=== PATIENT | female | born 1950 ===

== ENCOUNTER 2020-04-11 07:29 | Inpatient (IN) | payer MEDICARE, OTHER ==
[2020-04-11] MEDS ORDERED: Dextrose 50% Abboject 50 ML SYRINGE ONE (08:13)
--- NOTE | 2020-04-11 08:42 | RAD ---
Portable frontal chest radiograph: 04/11/2020 COMPARISON: 04/11/2019 HISTORY: Cough with shortness of breath FINDINGS: The heart and mediastinal contours are stable. There is new hazy increased density in the r ight lung base obscured in the right hemidiaphragm with blunting of the right costophrenic angle. Left lung appears clear. IMPRESSION: Interval development of hazy increased density in the right lung base. Findings suggest r ight basilar infectious pneumonitis or aspiration. Asymmetric edema is a possibility. Follow-up imaging is advised following treatment.
[2020-04-11 08:56] LABS: #Eosinphils 0.7 thou/uL (0.0-0.7); #Monocytes 0.4 thou/uL (0.11-0.59); %Basophils 0.7 % (0.0-1.0); %Eosinophils 16.6 % (0.0-10.0); %Lymphocytes 23.9 % (21.0-51.0); %Monocytes 8.6 % (0.0-10.0); %Neutrophils 50.2 % (42.0-75.0); Mean Corpuscular HGB CONC 32.7 g/dL (32.0-36.0); Mean Corpuscular Hemoglobin 28.4 pg (27.0-31.0); Mean Corpuscular Volume 86.8 fL (78.0-98.0); Mean Platelet Volume 6.6 fL (7.4-10.4); Platelet Count 225 thou/uL (130-400); RBC Distribution Width 15.8 % (11.5-14.5); Red Blood Cell (RBC) Count 3.16 mill/uL (4.20-5.40)
--- NOTE | 2020-04-11 09:04 | CT ---
Exam: Head CT without contrast HISTORY: Hypoglycemia. COMPARISON: 02/18/2019 FINDINGS: Hemorrhage: No intraparenchymal hemorrhage or extra-axial hematoma. Brain parenchyma: Cortical gonzalez-white matter differentiation is preserved. No mass effect or midline shift. Basilar cisterns are patent.Confluent white matter hypodensities likely due to chronic small vessel ischemic change. Chronic hypodensity in the left thalamus. Ventricular system: Ventricles and sulci are patent and symmetric. Calvarium: Intact. Sinuses and mastoid air cells: Adequate aeration. Old right lamina propecia fracture IMPRESSION: No acute intracranial process.
[2020-04-11] MEDS ORDERED: Azithromycin 500 MG VIAL ONE (09:27)
[2020-04-11] MEDS ORDERED: cefTRIAXone\\ROCEPHIN 1 GM VIAL ONE (09:27)
[2020-04-11 09:31] LABS: ALT (SGPT) Less than 7 U/L (8-55); AST (SGOT) 12 U/L (5-34); Albumin 3.1 g/dL (3.4-4.8); Alkaline Phosphatase 41 U/L (40-110); Anion Gap 9 mmol/L (10-20); BUN (Urea Nitrogen) 13 mg/dL (9.8-20.1); Bilirubin, Total 0.5 mg/dL (0.2-1.2); Calc. Creatinine Clearance 0 mL/min (70-130); Calcium 8.4 mg/dL (7.8-10.44); Carbon Dioxide 30 mmol/L (23-31); Chloride 99 mmol/L (98-107); Estimated GFR-MDRD 25; Globulin 2.4 g/dL (2.4-3.5); Glucose 146 mg/dL (83-110); Potassium 3.4 mmol/L (3.5-5.1); Protein, Total 5.5 g/dL (6.0-8.3); Sodium 135 mmol/L (136-145)
--- NOTE | 2020-04-11 09:49 | PDOC.HHP ---
Hospitalist HPI - History of Present Illness Hypoglycemia, AMS History of Present Illness: This is a 70-year-old female patient with a history of acute respiratory failure with hypoxemia, coronary disease, diabetes mellitus type 2, TYLER, CHF, CKD stage IV, hyperlipidemia, dysphagia, iron deficiency anemia and dementia who [facility] she was found to be hypoglycem ic with glucose of 34, with altered mental status and requiring 4 L oxygen. EMS noted a blood pressure of 152/75, pulse 52 oxygen saturation 100. On arrival vitals were 166/71 blood pressure, pulse 48, respiratory 12 saturation 94 on 4 L. Temperature rectal was hypothermic at 92.4. She received D5. Ambulance with increasing sugars to 212 however her blood glucose further dropped and she received another amp of D50 prior to a D5 NS insulin drip at 125 mils per hour. Labs showed sodium of 135, potassium 3.4, creatinine 1.95, baseline unknown, glucose improved to 146. WBC was 4.[address] scan of the head showed no acute intracranial process and chest x-ray development of increased density in the right lung base suggestive of pneumonitis or aspiration. She received azithromycin and ceftriaxone in the ED. Overall her mental state improved. At the time of my evaluation, she was oriented to self but not place and time. She was drowsy and intermittently with. She however denied any cough shortness of breath or chest pain. Hospitalist team consulted for admission. Hospitalist ROS - Review of Systems ROS unobtainable: due to mental status (Severely limited.) Hospitalist History - Past Medical History Cardiac: reports: CAD, CHF Renal/: reports: Chronic renal failure - Past Surgical History Other Surgical History: Unknown at the moment. - Family History Other Family History: Unable to schedule at the moment - Social History Other Social History: Lives in custodial - Exam General - other findings: Awake, however somnolent. Eye: anicteric sclera Eye - other findings: Face puffy ENT: normocephalic atraumatic Heart: RRR, no murmur, no gallops, no rubs, normal peripheral pulses Respiratory: no wheezes, no rales, no ronchi, normal chest expansion Gastrointestinal: soft, non-tender, non-distended, normal bowel sounds Extremities: no cyanosis, no clubbing, 1+ LE edema Psychiatric - other findings: Oriented to person. Not place and time Hospitalist Results - Labs Result Diagrams: 04/11/20 08:33 04/11/20 08:33 Lab results: WBC 4.0 thou/uL (4.8-10.8) L 04/11/20 08:33 Hgb 9.0 g/dL (12.0-16.0) L 04/11/20 08:33 Hct 27.4 % (36.0-47.0) L 04/11/20 08:33 MCV 86.8 fL (78.0-98.0) 04/11/20 08:33 Plt Count 225 thou/uL (130-400) 04/11/20 08:33 Neutrophils % 50.2 % (42.0-75.0) 04/11/20 08:33 Sodium 135 mmol/L (136-145) L 04/11/20 08:33 Potassium 3.4 mmol/L (3.5-5.1) L 04/11/20 08:33 Chloride 99 mmol/L (98-107) 04/11/20 08:33 Carbon Dioxide 30 mmol/L (23-31) 04/11/20 08:33 BUN 13 mg/dL (9.8-20.1) 04/11/20 08:33 Creatinine 1.95 mg/dL (0.6-1.1) H 04/11/20 08:33 Glucose 146 mg/dL (83-110) H 04/11/20 08:33 Lactic Acid 0.5 mmol/L (0.5-2.2) 04/11/20 08:33 Calcium 8.4 mg/dL (7.8-10.44) 04/11/20 08:33 Total Bilirubin 0.5 mg/dL (0.2-1.2) 04/11/20 08:33 AST 12 U/L (5-34) 04/11/20 08:33 ALT Less than 7 U/L (8-55) L 04/11/20 08:33 Alkaline Phosphatase 41 U/L (40-110) 04/11/20 08:33 Serum Total Protein 5.5 g/dL (6.0-8.3) L 04/11/20 08:33 Albumin 3.1 g/dL (3.4-4.8) L 04/11/20 08:33 Hospitalist H&P A/P - Plan Plan: Severe sepsis As hypothermia, altered mental status, source lung. We will check UA to rule out any urinary source 2. We will continue on ampicillin and ceftriaxone for now No bolus received on account of adequate blood pressure and no lactate elevation .Lactate 0.5 However she received a bolus of 1 L NS given associated possible TYLER Observe in telemetry. Hypothermia With temperature 93.1 for nowcontinue on Lanette hugger. Right lobar pneumonia Continue azithromycin and ceftriaxone PRN oxygen Acute encephalopathy Likely secondary to hypoglycemia/sepsis Apparently back close to baseline Continue monitoringmonitor sugar Hypoglycemia Blood sugar within normal range at the moment Continue on D5 drip Change to D5 NS Every 2 blood glucose checks. History of CHF Not in acute exacerbation Continue monitoring Start home medications once verified Normocytic anemia9.0 Likely of chronic disorderelec We will check iron studies. Hypokalemia Potassium 3.4 We will correct CKD, possible TYLER Give 500 mils bolus Monitor Urinalysis pending Renal ultrasound if no improvement. DVT prophylaxisHeparin CODE STATUSfull code
[2020-04-11 09:53] LABS: Bacteria/HPF None Seen HPF (None Seen); Bilirubin Negative (Negative); Blood, Urine Negative (Negative); Clarity Clear (Clear); Glucose, Urine (Dipstick) Normal (Negative); Ketone, Urine Negative (Negative); Leukocyte Negative Leu/uL (Negative); Nitrite Negative (Negative); Protein, Urine (Dipstick) 50 mg/dL (Neg-Trace); RBC/HPF 0-3 HPF (0-3); Specific Gravity, Urine 1.009 (1.002-1.036); Squamous Epithelial 0-3 HPF (0-3); Urobilinogen Normal mg/dL (Less than 2); WBC/HPF 0-3 HPF (0-3)
[2020-04-11] MEDS ORDERED: Dextrose 50% Abboject 50 ML SYRINGE SLOW IVP PRN (09:59)
[2020-04-11] MEDS ORDERED: Dextrose 5% in Water 1,000 ML IV PRN (09:59)
[2020-04-11] MEDS ORDERED: Sodium Chloride 0.9% 1,000 ML IV SCH (10:30)
[2020-04-11 11:14] LABS: Thyroid Stimulating Hormone 1.3537 uIU/mL (0.35-4.94)
[2020-04-11] MEDS ORDERED: Heparin 5,000 UNITS/ML VIAL SC SCH ×2 (16:00→21:00)
[2020-04-11] MEDS ORDERED: Electrolyte Replacement Protocol FS PRN (16:00)
[2020-04-11] MEDS ORDERED: Electrolyte Replacement Protoc 1 EACH EACH FS SCH (16:00)
[2020-04-11] MEDS: HumaLOG 300 UNITS/3 ML VIAL SC PRN (17:13)
[2020-04-11] MEDS: Heparin 5,000 UNITS/ML VIAL SC SCH (20:45)
[2020-04-11] MEDS ORDERED: Labetalol HCl 100 MG/20 ML VIAL SLOW IVP SCH (22:15)
[2020-04-11 22:53] LABS: Iron 36 ug/dL (50-170); Iron Binding Capacity, Total 159 mcg/dL (265-497)
[2020-04-12 04:17] LABS: #Eosinphils 0.4 thou/uL (0.0-0.7); #Lymphocytes 1.2 thou/uL (1.20-3.40); #Monocytes 0.4 thou/uL (0.11-0.59); #Neutrophils 2.7 thou/uL (1.40-6.50); %Basophils 0.6 % (0.0-1.0); %Eosinophils 8.5 % (0.0-10.0); %Lymphocytes 24.5 % (21.0-51.0); %Monocytes 8.7 % (0.0-10.0); %Neutrophils 57.7 % (42.0-75.0); Hemoglobin 8.3 g/dL (12.0-16.0); Mean Corpuscular HGB CONC 32.9 g/dL (32.0-36.0); Mean Corpuscular Hemoglobin 27.9 pg (27.0-31.0); Mean Corpuscular Volume 84.7 fL (78.0-98.0); Mean Platelet Volume 6.7 fL (7.4-10.4); Platelet Count 224 thou/uL (130-400); RBC Distribution Width 15.9 % (11.5-14.5); Red Blood Cell (RBC) Count 2.97 mill/uL (4.20-5.40); White Blood Cell (WBC) Count 4.7 thou/uL (4.8-10.8)
[2020-04-12 04:42] LABS: Anion Gap 11 mmol/L (10-20); BUN (Urea Nitrogen) 11 mg/dL (9.8-20.1); Calc. Creatinine Clearance 41 mL/min (70-130); Calcium 8.7 mg/dL (7.8-10.44); Carbon Dioxide 28 mmol/L (23-31); Chloride 100 mmol/L (98-107); Estimated GFR-MDRD 32; Glucose 123 mg/dL (83-110); Potassium 3.7 mmol/L (3.5-5.1); Sodium 135 mmol/L (136-145)
[2020-04-12] MEDS ORDERED: Labetalol HCl 100 MG/20 ML VIAL SLOW IVP SCH (04:45)
[2020-04-12] MEDS: Heparin 5,000 UNITS/ML VIAL SC SCH ×3 (07:59→20:15)
[2020-04-12] MEDS ORDERED: hydrALAZINE 20 MG/ML VIAL SLOW IVP PRN (08:01)
[2020-04-12] MEDS: Labetalol HCl 100 MG/20 ML VIAL SLOW IVP PRN ×2 (08:07→13:22)
[2020-04-12] MEDS ORDERED: FLU VACC QS2020-21(65YR UP)/PF 240 MCG/0.7 ML SYRINGE IM ONE (09:00)
[2020-04-12] MEDS: cefTRIAXone\\ROCEPHIN 1 GM in Sodium Chloride 0.9% 100 ML IVPB SCH (09:26)
[2020-04-12] MEDS: Nitroglycerin 2% Ointment 1 INCH/1 GM Packet TOP SCH ×2 (10:19→18:12)
--- NOTE | 2020-04-12 10:34 | PQF ---
CLINICAL DOCUMENTATION CLARIFICATION FORM: Dear Dr. Harley Date: 04/12/20 Please exercise your independent, professional judgment in responding to the clarification form. Clinical indicators are provided on the bottom of this form for your review. Please check appropriate box(es): [ X] Encephalopathy: Type: [ X] Acute [ ] Subacute [ ] Chronic Etiology: [ ] Hypertensive [ X ] Metabolic [ ] Toxic [ ] Hypoxic [ ] Septic [ ] Wernickes [ ] Drug induced: [ ] In the setting of underlying dementia [ ] Unspecified [ ] Other (please specify) [ ] Transient Alteration of Awareness [ ] Other diagnosis [ ] Unable to determine In addition, please specify: Present on Admission (POA): [ X] Yes [ ] No [ ] Unable to determine For continuity of documentation, please document condition throughout progress notes and discharge summary. Thank You. To be completed by CDI/Coding staff for physician review: CLINICAL INDICATORS - SIGNS / SYMPTOMS / LABS / RESULTS AND LOCATION IN EMR H&P (AFFRAM): "ACUTE ENCEPHALOPATHY" RISKS: SEPSIS (H&P) HYPOGLYCEMIA (H&P) PNEUMONIA (H&P) TYLER (H&P) HYPERTENSION (SEE VS IN CHART) TREATMENT: D50 GIVEN PER EMS AND IN ER (ER NOTE) IV AZITHROMYCIN (ER-PRESENT) IV ROCEPHIN (ER-PRESENT) IV D5NS (ER) IV LABETALOL (04/12) CDS Signature: Ludy Benjamin RN Phone #: [phone] Date/Time: 04/12/20 ADONAY
[2020-04-12] MEDS ORDERED: Azithromycin 500 MG in Sodium Chloride 0.9% 250 ML 250 ML IVPB SCH (11:00)
[2020-04-12] MEDS: cloNIDine 0.1 MG TAB PO PRN ×2 (11:59→15:27)
--- NOTE | 2020-04-12 12:01 | PDOC.HOSPP ---
- Subjective Encounter Date: 04/12/20 Encounter Time: 11:59 Subjective: Ms. Carroll was seen today in follow-up of hypoglycemia, and pneumonia. She does not have any complaints this morning. She admits to a poor appetite at times, and would like to have Ensure supplements. - Objective Vital Signs & Weight: Vital Signs (12 hours) Temp Pulse Resp BP BP Pulse Ox 04/12/20 11:20 99.0 F 72 26 H 199/86 H 100 04/12/20 09:29 83 193/86 H 04/12/20 08:07 81 04/12/20 07:44 98.5 F 82 18 196/84 H 100 04/12/20 05:30 69 04/12/20 04:05 98.7 F 69 22 H 191/85 H 100 Weight Weight 175 lb I&O: 04/11/20 04/12/20 04/13/20 06:59 06:59 06:59 Output Total 550 Balance -550 Result Diagrams: 04/12/20 04:05 04/12/20 04:05 Additional Labs: Accuchecks 04/12/20 04/12/20 04/12/20 07:59 04:05 00:07 POC Glucose 111 H 120 H 113 H 04/11/20 04/11/20 04/11/20 20:52 17:07 09:40 POC Glucose 115 H 172 H 93 Hospitalist ROS - Medication Medications: Active Medications Generic Name Dose Route Start Last Admin Trade Name Freq PRN Reason Stop Dose Admin Heparin Sodium (Porcine) 5,000 units 04/11/20 21:00 04/12/20 07:59 Heparin 5,000 Units/Ml Vial SC 5,000 units TID THALIA Administration Ceftriaxone Sodium 1 gm/ 100 mls @ 200 mls/hr 04/12/20 10:00 04/12/20 09:26 Sodium Chloride IVPB 100 mls 1000 THALIA Administration Insulin Human Lispro 0 units 04/11/20 09:59 04/11/20 17:13 Humalog 300 Units/3 Ml Vial SC 2 unit .MILD SLIDING SCALE PRN Administration Mild Correctional Scale Labetalol HCl 10 mg 04/12/20 08:01 04/12/20 08:07 Labetalol Hcl 100 Mg/20 Ml Vial SLOW IVP 10 mg Q4H PRN Administration SBP > 180 and HR >/= 70 Nitroglycerin 0.5 inch 04/12/20 11:00 04/12/20 10:19 Nitroglycerin 2% Ointment 1 Inch/1 Gm Packet TOP 0.5 inch Q8H THALIA Administration - Exam Eye: PERRL, anicteric sclera Heart: RRR, no murmur, no gallops, no rubs, normal peripheral pulses Respiratory: CTAB (with the exception of rales noted in the upper lung gao), no wheezes, no ronchi Gastrointestinal: soft, non-tender, non-distended, normal bowel sounds, no palpable masses, no hepatomegaly Extremities: no cyanosis, 1+ LE edema (+ chronic venous stasis changes) Hosp A/P (1) Hypoglycemia Code(s): E16.2 - HYPOGLYCEMIA, UNSPECIFIED Status: Acute (2) Hypertensive urgency Code(s): I16.0 - HYPERTENSIVE URGENCY Status: Acute (3) Pneumonia Code(s): J18.9 - PNEUMONIA, UNSPECIFIED ORGANISM Status: Acute Qualifiers: Pneumonia type: aspiration pneumonia (4) Chronic kidney disease, stage 4 (severe) Code(s): N18.4 - CHRONIC KIDNEY DISEASE, STAGE 4 (SEVERE) Status: Acute (5) Diabetes mellitus type 2 in nonobese Code(s): E11.9 - TYPE 2 DIABETES MELLITUS WITHOUT COMPLICATIONS Status: Acute - Plan * Hypoglycemia- likely due to poor oral intake and aspiration pneumonia- blood glucose has remained stable * Aspiration pneumonia - continue Rocephin and will add Flagul * Speech Therapy evaluation is pending * Hypertensive Urgency- will add Clonidine prn * Chronic kidney disease stage 4- stable *
[2020-04-12 12:38] LABS: SARS-CoV-2 MS2 Positive; SARS-CoV-2 N Gene Negative; SARS-CoV-2 S Gene Negative; SARS-CoV-2 by NAA Not Detected (NotDetected); SARS-CoV-2 orf1ab Negative
[2020-04-12] MEDS: metroNIDAZOLE 500 MG in Premix Bag 1 BAG IVPB SCH ×2 (13:19→22:10)
[2020-04-12] MEDS ORDERED: Nitroglycerin 2% Ointment 1 INCH/1 GM Packet TOP SCH (14:00)
--- NOTE | 2020-04-12 14:12 | RAD ---
Modified barium swallow with speech therapist: 04/12/2020 HISTORY: 70-year-old female with dysphagia, unspecified R 13.10, and feeding difficulties, R63.3 Pneumonia. Suspected aspiration pneumonia. FINDINGS: Somewhat delayed oral phase. Edentulous. Flash penetration, silent, with thin liquid. Good epiglottic inversion. No mila aspiration. No significant residue. Some premature free spillage into vallecula. IMPRESSION: Mild dysphagia. Flash penetration with thin liquids, but no aspiration.
[2020-04-12] MEDS ORDERED: Amlodipine 10 MG TAB PO SCH (18:00)
[2020-04-12] MEDS: Metoclopramide HCl 10 MG TAB PO SCH (20:15)
[2020-04-12] MEDS: Carvedilol 25 MG TAB PO SCH (20:15)
[2020-04-12] MEDS: hydrALAZINE 25 MG TAB PO SCH (20:15)
[2020-04-12] MEDS: Ferrous Sulfate 325 MG TAB PO SCH (20:15)
[2020-04-13] MEDS: Nitroglycerin 2% Ointment 1 INCH/1 GM Packet TOP SCH ×2 (03:05→10:48)
[2020-04-13] MEDS: metroNIDAZOLE 500 MG in Premix Bag 1 BAG IVPB SCH ×3 (05:50→21:30)
[2020-04-13] MEDS ORDERED: Acetaminophen 500 MG TAB PO SCH (08:15)
[2020-04-13] MEDS: Aspirin Chewable 81 MG TAB PO SCH (08:16)
[2020-04-13] MEDS: Carvedilol 25 MG TAB PO SCH ×2 (08:16→20:00)
[2020-04-13] MEDS: Ferrous Sulfate 325 MG TAB PO SCH ×3 (08:17→20:00)
[2020-04-13] MEDS: Clopidogrel Bisulfate 75 MG TAB PO SCH (08:17)
[2020-04-13] MEDS: Amlodipine 10 MG TAB PO SCH (08:17)
[2020-04-13] MEDS: Heparin 5,000 UNITS/ML VIAL SC SCH ×3 (08:17→20:05)
[2020-04-13] MEDS: Metoclopramide HCl 10 MG TAB PO SCH ×4 (08:17→20:00)
[2020-04-13] MEDS: hydrALAZINE 25 MG TAB PO SCH ×2 (08:17→20:00)
[2020-04-13] MEDS: Magnesium Oxide 400 MG TAB PO SCH (08:17)
[2020-04-13] MEDS: traZODone HCl 50 MG TAB PO SCH (08:18)
[2020-04-13] MEDS: cefTRIAXone\\ROCEPHIN 1 GM in Sodium Chloride 0.9% 100 ML IVPB SCH (10:48)
--- NOTE | 2020-04-13 11:20 | PDOC.HOSPP ---
- Subjective Encounter Date: 04/13/20 Encounter Time: 10:45 Subjective: awake, keeps her eyes closed not in distress, had fever of 102 this am has cough with expectoration of sputum pt does not ambulate, is bed bound and is a snf resident - Objective Vital Signs & Weight: Vital Signs (12 hours) Temp Pulse Resp BP BP Pulse Ox 04/13/20 11:11 100.2 F H 76 20 166/76 H 96 04/13/20 09:54 100.7 F H 152/62 H 04/13/20 07:47 102.9 F H 86 24 H 189/85 H 96 04/13/20 04:00 100.4 F H 75 18 168/72 H 97 04/12/20 23:54 74 169/72 H Weight Admit Weight 179 lb Weight 173 lb 4.8 oz I&O: 04/12/20 04/13/20 04/14/20 06:59 06:59 06:59 Intake Total 900 Output Total 550 1100 Balance -550 -200 Result Diagrams: 04/12/20 04:05 04/12/20 04:05 Additional Labs: Accuchecks 04/13/20 04/13/20 04/12/20 07:57 04:21 20:07 POC Glucose 122 H 128 H 157 H 04/12/20 04/12/20 16:04 12:35 POC Glucose 147 H 152 H Hospitalist ROS - Medication Medications: Active Medications Generic Name Dose Route Start Last Admin Trade Name Freq PRN Reason Stop Dose Admin Amlodipine Besylate 10 mg 04/13/20 09:00 04/13/20 08:17 Amlodipine 10 Mg Tab PO 10 mg DAILY THALIA Administration Aspirin 81 mg 04/13/20 09:00 04/13/20 08:16 Aspirin Chewable 81 Mg Tab PO 81 mg DAILY THALIA Administration Carvedilol 25 mg 04/12/20 21:00 04/13/20 08:16 Carvedilol 25 Mg Tab PO 25 mg BID THALIA Administration Clonidine 0.1 mg 04/12/20 11:34 04/12/20 15:27 Clonidine 0.1 Mg Tab PO 0.1 mg Q4H PRN Administration SBP GREATER THAN 160 Clopidogrel Bisulfate 75 mg 04/13/20 09:00 04/13/20 08:17 Clopidogrel Bisulfate 75 Mg Tab PO 75 mg DAILY THALIA Administration Ferrous Sulfate 325 mg 04/12/20 21:00 04/13/20 08:17 Ferrous Sulfate 325 Mg Tab PO 325 mg TID THALIA Administration Heparin Sodium (Porcine) 5,000 units 04/11/20 21:00 04/13/20 08:17 Heparin 5,000 Units/Ml Vial SC 5,000 units TID THALIA Administration Hydralazine HCl 25 mg 04/12/20 21:00 04/13/20 08:17 Hydralazine 25 Mg Tab PO 25 mg BID THALIA Administration Ceftriaxone Sodium 1 gm/ 100 mls @ 200 mls/hr 04/12/20 10:00 04/13/20 10:48 Sodium Chloride IVPB 100 mls 1000 THALIA Administration Metronidazole 500 mg/ Device 100 mls @ 100 mls/hr 04/12/20 14:00 04/13/20 05:50 IVPB 100 mls Q8HR THALIA Administration Insulin Human Lispro 0 units 04/11/20 09:59 04/11/20 17:13 Humalog 300 Units/3 Ml Vial SC 2 unit .MILD SLIDING SCALE PRN Administration Mild Correctional Scale Isosorbide Mononitrate 60 mg 04/12/20 21:00 04/13/20 08:16 Isosorbide Mononitrate Er 60 Mg Tab PO 60 mg BID THALIA Administration Labetalol HCl 10 mg 04/12/20 08:01 04/12/20 13:22 Labetalol Hcl 100 Mg/20 Ml Vial SLOW IVP 10 mg Q4H PRN Administration SBP > 180 and HR >/= 70 Magnesium Oxide 400 mg 04/13/20 09:00 04/13/20 08:17 Magnesium Oxide 400 Mg Tab PO 400 mg DAILY THALIA Administration Metoclopramide HCl 10 mg 04/12/20 21:00 04/13/20 08:17 Metoclopramide Hcl 10 Mg Tab PO 10 mg QID THALIA Administration Trazodone HCl 50 mg 04/13/20 09:00 04/13/20 08:18 Trazodone Hcl 50 Mg Tab PO 50 mg DAILY THALIA Administration - Exam General Appearance: awake alert, ill appearing Eye: PERRL, anicteric sclera ENT: no oropharyngeal lesions, dry oral mucosa Neck: supple, no JVD Heart: RRR, murmur present Respiratory: no wheezes, no rales, rhonchi Gastrointestinal: soft, non-tender, non-distended, normal bowel sounds Extremities - other findings: gen edema+ Neurological: cranial nerve grossly intact, no focal deficits Hosp A/P (1) Aspiration pneumonia Code(s): J69.0 - PNEUMONITIS DUE TO INHALATION OF FOOD AND VOMIT Status: Acute Qualifiers: Aspiration pneumonia type: due to regurgitated food Laterality: right Lung location: middle lobe of lung Qualified Code(s): J69.0 - Pneumonitis due to inhalation of food and vomit (2) Sepsis Code(s): A41.9 - SEPSIS, UNSPECIFIED ORGANISM Status: Acute Qualifiers: Sepsis type: sepsis due to unspecified organism Sepsis acute organ dysfunction status: without acute organ dysfunction Qualified Code(s): A41.9 - Sepsis, unspecified organism (3) HTN (hypertension) Code(s): I10 - ESSENTIAL (PRIMARY) HYPERTENSION Status: Chronic Qualifiers: Hypertension type: essential hypertension Qualified Code(s): I10 - Essential (primary) hypertension (4) Functional quadriplegia Code(s): R53.2 - FUNCTIONAL QUADRIPLEGIA Status: Chronic (5) Dysphagia Code(s): R13.10 - DYSPHAGIA, UNSPECIFIED Status: Acute Qualifiers: Dysphagia type: unspecified Qualified Code(s): R13.10 - Dysphagia, unspecified (6) DM type 2 (diabetes mellitus, type 2) Status: Chronic Qualifiers: Diabetes mellitus terminal superintendent insulin use: with usp use Diabetes mellitus complication status: with kidney complications Diabetes mellitus complication detail: with chronic kidney disease Chronic kidney disease stage: stage 3 (moderate) (7) Hypoglycemia Code(s): E16.2 - HYPOGLYCEMIA, UNSPECIFIED Status: Resolved (8) CKD (chronic kidney disease) stage 3, GFR 30-59 ml/min Code(s): N18.30 - CHRONIC KIDNEY DISEASE, STAGE 3 UNSPECIFIED Status: Chronic (9) Moderate protein-calorie malnutrition Code(s): E44.0 - MODERATE PROTEIN-CALORIE MALNUTRITION Status: Chronic (10) FTT (failure to thrive) in adult Status: Chronic - Plan is on ceftriaxone and flagyl, nebs continue asp, plavix, coreg, hydralazine, imdur prognosis guarded aspiration precautions, diet per speech advice ID consultation covid -ve has generalized anasarca, worse in upper extremities
[2020-04-13] MEDS: Labetalol HCl 100 MG/20 ML VIAL SLOW IVP PRN ×2 (13:24→22:05)
[2020-04-13] MEDS: Acetaminophen 325 MG TAB PO PRN ×2 (13:24→20:00)
[2020-04-13] MEDS: cloNIDine 0.1 MG TAB PO PRN ×2 (16:14→21:30)
[2020-04-13] MEDS ORDERED: Furosemide 40 MG/4 ML VIAL SLOW IVP SCH (18:45)
[2020-04-13] MEDS ORDERED: Furosemide 20 MG TAB PO SCH (21:00)
[2020-04-13] MEDS ORDERED: Enalaprilat Dihydrate 1.25 MG/ML VIAL SLOW IVP PRN (23:59)
[2020-04-14] MEDS: niCARdipine 25 MG in Sodium Chloride 0.9% 250 ML 240 ML IVPB SCH ×2 (02:25→08:10)
[2020-04-14] MEDS: HumaLOG 300 UNITS/3 ML VIAL SC PRN (04:55)
[2020-04-14] MEDS: metroNIDAZOLE 500 MG in Premix Bag 1 BAG IVPB SCH ×3 (06:18→22:29)
[2020-04-14] MEDS: Acetaminophen 325 MG TAB PO PRN ×2 (08:10→19:39)
[2020-04-14 08:23] LABS: Hemoglobin 9.2 g/dL (12.0-16.0); Mean Corpuscular HGB CONC 32.8 g/dL (32.0-36.0); Mean Corpuscular Hemoglobin 27.8 pg (27.0-31.0); Mean Corpuscular Volume 84.6 fL (78.0-98.0); Mean Platelet Volume 7.1 fL (7.4-10.4); Platelet Count 219 thou/uL (130-400); RBC Distribution Width 16.2 % (11.5-14.5)
[2020-04-14 08:28] LABS: Anion Gap 16 mmol/L (10-20); BUN (Urea Nitrogen) 17 mg/dL (9.8-20.1); Calc. Creatinine Clearance 36 mL/min (70-130); Calcium 8.9 mg/dL (7.8-10.44); Carbon Dioxide 23 mmol/L (23-31); Chloride 104 mmol/L (98-107); Estimated GFR-MDRD 28; Glucose 95 mg/dL (83-110); Potassium 4.3 mmol/L (3.5-5.1); Sodium 139 mmol/L (136-145)
[2020-04-14] MEDS: cefTRIAXone\\ROCEPHIN 1 GM in Sodium Chloride 0.9% 100 ML IVPB SCH (08:36)
[2020-04-14] MEDS: Metoclopramide HCl 10 MG TAB PO SCH (08:36)
[2020-04-14] MEDS: Heparin 5,000 UNITS/ML VIAL SC SCH ×3 (08:36→19:36)
[2020-04-14] MEDS: Aspirin Chewable 81 MG TAB PO SCH (08:36)
[2020-04-14] MEDS: hydrALAZINE 25 MG TAB PO SCH ×3 (08:36→19:38)
[2020-04-14] MEDS: Ferrous Sulfate 325 MG TAB PO SCH ×3 (08:37→19:38)
[2020-04-14] MEDS: Magnesium Oxide 400 MG TAB PO SCH (08:37)
[2020-04-14] MEDS: Amlodipine 10 MG TAB PO SCH (08:37)
[2020-04-14] MEDS: Clopidogrel Bisulfate 75 MG TAB PO SCH (08:37)
[2020-04-14] MEDS: traZODone HCl 50 MG TAB PO SCH (08:37)
[2020-04-14] MEDS: Carvedilol 25 MG TAB PO SCH ×2 (08:37→19:37)
[2020-04-14] MEDS ORDERED: niCARdipine 25 MG in Sodium Chloride 0.9% 250 ML 240 ML IVPB SCH (08:48)
[2020-04-14 08:49] LABS: White Blood Cell (WBC) Count 5.7 thou/uL (4.8-10.8)
[2020-04-14 08:50] LABS: Band 2 % (5-11); Eosinophils 2 % (0-10); Large Platelets SLIGHT; Lymphocytes 10 % (21-51); MDiff Complete? YES; Monocytes 9 % (0-10); Neutrophil 77 % (42-75); Polychromasia SLIGHT = 2-3 cells (100X) (0-2/hpf)
[2020-04-14 08:54] LABS: Platelet Morphology Comment Appears Adequate
[2020-04-14 08:59] LABS: Actual Bicarbonate (HCO3a) 25.1 mEq/L (22-28); CO2 Tension 33.2 mmHg (35.0-45.0); Calcium, Ionized (arterial) 1.19 mmol/L (1.12-1.30); Carboxyhemoglobin (COHb) 0.3 gm% (0.0-3.0); Hemoglobin (Hb) 9.1 g/dL (12.0-16.0); O2 Tension (PaO2), arterial 79.4 mmHg (> 70.0); Potassium - ABG Lab 3.64 mmol/L (3.70-5.30)
[2020-04-14 09:00] LABS: Puncture Site RRA
[2020-04-14] MEDS ORDERED: Furosemide 40 MG/4 ML VIAL SLOW IVP SCH ×2 (10:30→14:00)
[2020-04-14] MEDS ORDERED: Metoclopramide HCl 10 MG TAB PO PRN (12:14)
--- NOTE | 2020-04-14 12:16 | PDOC.HOSPP ---
- Subjective Encounter Date: 04/14/20 Encounter Time: 09:00 Subjective: has sob, no chest pain or palp oriented well this morning in ICU - Objective Vital Signs & Weight: Vital Signs (12 hours) Temp Pulse BP BP Pulse Ox 04/14/20 12:00 98.9 F 04/14/20 09:00 99.1 F 04/14/20 08:37 87 176/83 H 04/14/20 08:36 176/83 H 04/14/20 08:00 101.0 F H 04/14/20 07:43 100 04/14/20 05:00 98.4 F 04/14/20 02:35 100 04/14/20 02:15 100.2 F H 04/14/20 01:00 201/86 H 04/14/20 00:30 202/99 H Weight Admit Weight 171 lb 15.369 oz Weight 171 lb 15.369 oz Most Recent Monitor Data Heart Rate from ECG 86 NIBP 174/73 NIBP BP-Mean 106 Respiration from ECG 31 SpO2 98 I&O: 04/13/20 04/14/20 04/15/20 06:59 06:59 06:59 Intake Total 900 491 210 Output Total 1100 300 Balance -200 191 210 Result Diagrams: 04/14/20 08:05 04/14/20 08:05 Additional Labs: Accuchecks 04/14/20 04/14/20 04/13/20 04:47 00:30 20:23 POC Glucose 171 H 172 H 146 H 04/13/20 16:14 POC Glucose 137 H Hospitalist ROS - Medication Medications: Active Medications Generic Name Dose Route Start Last Admin Trade Name Freq PRN Reason Stop Dose Admin Acetaminophen 650 mg 04/13/20 08:05 04/14/20 08:10 Acetaminophen 325 Mg Tab PO 650 mg Q6H PRN Administration Headache/Fever or Pain Amlodipine Besylate 10 mg 04/13/20 09:00 04/14/20 08:37 Amlodipine 10 Mg Tab PO 10 mg DAILY THALIA Administration Aspirin 81 mg 04/13/20 09:00 04/14/20 08:36 Aspirin Chewable 81 Mg Tab PO 81 mg DAILY THALIA Administration Clonidine 0.1 mg 04/12/20 11:34 04/13/20 21:30 Clonidine 0.1 Mg Tab PO 0.1 mg Q4H PRN Administration SBP GREATER THAN 160 Clopidogrel Bisulfate 75 mg 04/13/20 09:00 04/14/20 08:37 Clopidogrel Bisulfate 75 Mg Tab PO 75 mg DAILY THALIA Administration Enalaprilat 0.625 mg 04/13/20 23:59 04/14/20 00:30 Enalaprilat Dihydrate 1.25 Mg/Ml Vial SLOW IVP 0.625 mg Q6HR PRN Administration Hypertension Ferrous Sulfate 325 mg 04/12/20 21:00 04/14/20 08:37 Ferrous Sulfate 325 Mg Tab PO 325 mg TID THALIA Administration Heparin Sodium (Porcine) 5,000 units 04/11/20 21:00 04/14/20 08:36 Heparin 5,000 Units/Ml Vial SC 5,000 units TID THALIA Administration Hydralazine HCl 75 mg 04/14/20 09:00 04/14/20 08:36 Hydralazine 25 Mg Tab PO 75 mg TID THALIA Administration Ceftriaxone Sodium 1 gm/ 100 mls @ 200 mls/hr 04/12/20 10:00 04/14/20 08:36 Sodium Chloride IVPB 100 mls 1000 THALIA Administration Metronidazole 500 mg/ Device 100 mls @ 100 mls/hr 04/12/20 14:00 04/14/20 06:18 IVPB 100 mls Q8HR THALIA Administration Insulin Human Lispro 0 units 04/11/20 09:59 04/14/20 04:55 Humalog 300 Units/3 Ml Vial SC 2 unit .MILD SLIDING SCALE PRN Administration Mild Correctional Scale Isosorbide Mononitrate 60 mg 04/12/20 21:00 04/14/20 08:37 Isosorbide Mononitrate Er 60 Mg Tab PO 60 mg BID THALIA Administration Labetalol HCl 10 mg 04/12/20 08:01 04/13/20 22:05 Labetalol Hcl 100 Mg/20 Ml Vial SLOW IVP 10 mg Q4H PRN Administration SBP > 180 and HR >/= 70 Magnesium Oxide 400 mg 04/13/20 09:00 04/14/20 08:37 Magnesium Oxide 400 Mg Tab PO 400 mg DAILY THALIA Administration Trazodone HCl 50 mg 04/13/20 09:00 04/14/20 08:37 Trazodone Hcl 50 Mg Tab PO 50 mg DAILY THALIA Administration - Exam General Appearance: awake alert Eye: PERRL, anicteric sclera ENT: no oropharyngeal lesions, moist mucosa Neck: supple, JVD Heart: RRR, no murmur Respiratory: no wheezes, rales, rhonchi Gastrointestinal: soft, non-tender, non-distended, normal bowel sounds Extremities: no cyanosis, 1+ LE edema Neurological: cranial nerve grossly intact, no focal deficits Psychiatric: A&O x 3 Hosp A/P (1) Aspiration pneumonia Code(s): J69.0 - PNEUMONITIS DUE TO INHALATION OF FOOD AND VOMIT Status: Acute Qualifiers: Aspiration pneumonia type: due to regurgitated food Laterality: right Lung location: middle lobe of lung Qualified Code(s): J69.0 - Pneumonitis due to inhalation of food and vomit (2) Sepsis Code(s): A41.9 - SEPSIS, UNSPECIFIED ORGANISM Status: Acute Qualifiers: Sepsis type: sepsis due to unspecified organism Sepsis acute organ dysfunction status: without acute organ dysfunction Qualified Code(s): A41.9 - Sepsis, unspecified organism (3) HTN (hypertension) Code(s): I10 - ESSENTIAL (PRIMARY) HYPERTENSION Status: Chronic Qualifiers: Hypertension type: essential hypertension Qualified Code(s): I10 - Essential (primary) hypertension (4) Functional quadriplegia Code(s): R53.2 - FUNCTIONAL QUADRIPLEGIA Status: Chronic (5) Dysphagia Code(s): R13.10 - DYSPHAGIA, UNSPECIFIED Status: Acute Qualifiers: Dysphagia type: unspecified Qualified Code(s): R13.10 - Dysphagia, unspecified (6) DM type 2 (diabetes mellitus, type 2) Status: Chronic Qualifiers: Diabetes mellitus ocean transportation intermediary insulin use: with fpc use Diabetes mellitus complication status: with kidney complications Diabetes mellitus complication detail: with chronic kidney disease Chronic kidney disease stage: stage 3 (moderate) (7) Hypoglycemia Code(s): E16.2 - HYPOGLYCEMIA, UNSPECIFIED Status: Resolved (8) CKD (chronic kidney disease) stage 3, GFR 30-59 ml/min Code(s): N18.30 - CHRONIC KIDNEY DISEASE, STAGE 3 UNSPECIFIED Status: Chronic (9) Moderate protein-calorie malnutrition Code(s): E44.0 - MODERATE PROTEIN-CALORIE MALNUTRITION Status: Chronic (10) FTT (failure to thrive) in adult Status: Chronic (11) Acute exacerbation of CHF (congestive heart failure) Code(s): I50.9 - HEART FAILURE, UNSPECIFIED Status: Acute Qualifiers: Heart failure type: diastolic Qualified Code(s): I50.33 - Acute on chronic diastolic (congestive) heart failure (12) Hypertensive urgency Code(s): I16.0 - HYPERTENSIVE URGENCY Status: Acute - Plan is on ceftriaxone and flagyl, nebs continue asp, plavix, coreg, hydralazine, imdur, lasix d/w , sofie taper and dc sena gillis abg and cxr reviewed, echo shows good ef with concentric lvh and diastolic dysfunction discussed code status with patient, she does not want to be intubated but cpr and cardiac resuscitation is ok d/w her daughter and gave update 04/14/20 prognosis guarded aspiration precautions, diet per speech advice ID consultation covid -ve has generalized anasarca, worse in upper extremities
[2020-04-14] MEDS: Nitroglycerin 2% Ointment 1 INCH/1 GM Packet TOP SCH ×2 (12:57→22:29)
--- NOTE | 2020-04-14 13:24 | RAD ---
PORTABLE CHEST: DATE: 04/14/2020. PROVIDED CLINICAL HISTORY: Respiratory distress. FINDINGS: Comparison 04/11/2020. The cardiac silhouette remains enlarged. There is persistent right lower tennille g zone airspace disease. The lungs remain otherwise clear. There is no pleural fluid or pneumothora x apparent. IMPRESSION: Persistent right basilar airspace disease. Correlate for pneumonia. POS: JUAN
[2020-04-14] MEDS ORDERED: Nitroglycerin 2% Ointment 1 INCH/1 GM Packet TOP SCH (14:00)
--- NOTE | 2020-04-14 17:03 | CON ---
DATE OF CONSULTATION: 04/14/2020 REASON FOR CONSULTATION: Congestive heart failure. HISTORY OF PRESENT ILLNESS: Ms. Calloway is a pleasant 70-year-old woman, a resident of a local long-term. The patient has a history of heart disease, but we do not have much in the way of details. Apparently has a history of weak heart muscle. It looks like she has been in the hospital at [facility] from reading the previous notes. The patient is resting comfortably now with no complaints. She was admitted to the hospital with hypothermia and severe hypoglycemia. CURRENT MEDICATIONS: 1. She is on Vasotec IV. The Vasotec appears to be p.r.n. 2. She was on nicardipine drip, but that is off now. 3. Amlodipine daily. 4. Carvedilol 25 mg twice a day, dose to be reduced to 12.5 mg twice a day. 5. Plavix. 6. Furosemide. 7. Hydralazine. REVIEW OF SYSTEMS: Really not obtainable. Her mental status does not allow it. PAST MEDICAL HISTORY: As outlined above. PHYSICAL EXAMINATION: GENERAL: This is a pleasant elderly woman. She does know where she is, she says [place], but we are here in [place], which is adjacent city. She does know the date. VITAL SIGNS: Her blood pressure 140/60 and pulse 78 and regular. LUNGS: Clear. CARDIAC: Normal S1 and normal S2. ABDOMEN: Soft and nontender. EXTREMITIES: Warm and dry. No clubbing or cyanosis. There is mild edema. DIAGNOSTIC STUDIES: EKG initially showed sinus bradycardia, now sinus rhythm. Chest x-ray shows cardiomegaly. ASSESSMENT: 1. Congestive heart failure, probably chronic, systolic. 2. Hypertension. 3. Renal failure, stage 4. PLAN: 1. Try to obtain records from [facility]. Apparently, she was there recently. 2. Reduce carvedilol dose. 3. She is on low-dose KATIE inhibitors if needed. 4. Diuretic. We will follow with you. The patient has made a note she does not wish to be intubated. Apparently, she has been intubated in the past. Job ID: [id number]
--- NOTE | 2020-04-14 22:18 | CON ---
DATE OF CONSULTATION: 04/14/2020 HISTORY OF PRESENT ILLNESS: Yaneli Carroll is a 70-year-old female, who lives in a full-time care environment. She was found to be hypoglycemic and hypoxic. She was transferred to the hospital, admitted to the intensive care unit. Her mentation is improved. She is not a reliable historian. PAST MEDICAL HISTORY: 1. Remarkable for dementia. 2. Diabetes. 3. History of cardiomyopathy. 4. History of lipid disorder. 5. Chronic kidney disease. 6. Nonsmoker, drinker. FAMILY HISTORY: Negative for lung disease in early age. REVIEW OF SYSTEMS: Not accurately obtainable. PHYSICAL EXAMINATION: VITAL SIGNS: Heart rate in the 80s, blood pressure 186/83, respiratory rates in the teens. HEAD AND NECK: Exam is unremarkable. LUNGS: Remarkable for crackles at the right base. HEART: Regular rhythm. Grade 2/6 systolic murmur. ABDOMEN: Soft and nontender. EXTREMITIES: Without clubbing, cyanosis, or edema. LABORATORY DATA: White count 5.7, hemoglobin 9.2, platelets 219. Electrolytes are normal. Creatinine 1.76. Chest radiograph shows an infiltrate at the right base, cardiomegaly. Echocardiogram shows severe left ventricular hypertrophy and diastolic dysfunction. IMPRESSION: Pneumonia. Since she has had a temp as high as 102.9, most likely pneumonia and very likely this is aspiration mediated. Agree with current care. She also has diastolic dysfunction, severe left ventricular hypertrophy on echocardiogram. Her blood pressure should be controlled. Some of this could actually be hypertensive pulmonary edema mixed in with her pneumonia. In any event, she appears to be clinically improving. She will continue current care. This is a 70 min consult with greater than 50% of the time spent on the unit with coordination of care. Job ID: [id number] MTDD
[2020-04-15 04:24] LABS: #Lymphocytes 0.7 thou/uL (1.20-3.40); #Monocytes 0.4 thou/uL (0.11-0.59); #Neutrophils 2.9 thou/uL (1.40-6.50); %Basophils 0.6 % (0.0-1.0); %Eosinophils 0.4 % (0.0-10.0); %Lymphocytes 17.4 % (21.0-51.0); %Monocytes 10.7 % (0.0-10.0); %Neutrophils 70.8 % (42.0-75.0); Hemoglobin 8.1 g/dL (12.0-16.0); Mean Corpuscular HGB CONC 33.3 g/dL (32.0-36.0); Mean Corpuscular Hemoglobin 28.2 pg (27.0-31.0); Mean Corpuscular Volume 84.8 fL (78.0-98.0); Mean Platelet Volume 7.2 fL (7.4-10.4); Platelet Count 184 thou/uL (130-400); RBC Distribution Width 16.4 % (11.5-14.5); Red Blood Cell (RBC) Count 2.85 mill/uL (4.20-5.40)
[2020-04-15 04:41] LABS: Anion Gap 13 mmol/L (10-20); BUN (Urea Nitrogen) 20 mg/dL (9.8-20.1); Calc. Creatinine Clearance 36 mL/min (70-130); Calcium 8.4 mg/dL (7.8-10.44); Carbon Dioxide 28 mmol/L (23-31); Chloride 102 mmol/L (98-107); Estimated GFR-MDRD 28; Glucose 115 mg/dL (83-110); Potassium 3.5 mmol/L (3.5-5.1); Sodium 139 mmol/L (136-145)
[2020-04-15] MEDS: metroNIDAZOLE 500 MG in Premix Bag 1 BAG IVPB SCH ×3 (05:12→20:10)
[2020-04-15] MEDS: Nitroglycerin 2% Ointment 1 INCH/1 GM Packet TOP SCH (05:12)
[2020-04-15] MEDS ORDERED: Furosemide 20 MG/2 ML VIAL SLOW IVP SCH (06:00)
[2020-04-15] MEDS ORDERED: Potassium Chloride 20 MEQ TAB PO SCH (06:45)
[2020-04-15] MEDS: Aspirin Chewable 81 MG TAB PO SCH (08:37)
[2020-04-15] MEDS: Clopidogrel Bisulfate 75 MG TAB PO SCH (08:37)
[2020-04-15] MEDS: Carvedilol 25 MG TAB PO SCH ×2 (08:37→20:09)
[2020-04-15] MEDS: Amlodipine 10 MG TAB PO SCH (08:38)
[2020-04-15] MEDS: Magnesium Oxide 400 MG TAB PO SCH (08:38)
[2020-04-15] MEDS: traZODone HCl 50 MG TAB PO SCH (08:38)
[2020-04-15] MEDS: hydrALAZINE 25 MG TAB PO SCH ×3 (08:38→20:09)
[2020-04-15] MEDS: Ferrous Sulfate 325 MG TAB PO SCH ×3 (08:38→20:09)
[2020-04-15] MEDS: Heparin 5,000 UNITS/ML VIAL SC SCH ×3 (08:38→20:09)
[2020-04-15] MEDS: cefTRIAXone\\ROCEPHIN 1 GM in Sodium Chloride 0.9% 100 ML IVPB SCH (09:15)
--- NOTE | 2020-04-15 10:54 | PRG ---
DATE OF SERVICE: 04/15/2020 SUBJECTIVE: Ms. Carroll is looking good today. She is awake and alert with no complaints. OBJECTIVE: VITAL SIGNS: Her most recent blood pressure is actually 120 systolic, pulse is in the 80s. LUNGS: Clear. CARDIAC: Normal S1 and S2. ABDOMEN: Soft, nontender. EXTREMITIES: Only minimal edema. LABORATORY DATA: Echocardiogram showed severe left ventricular hypertrophy with normal left ventricular systolic function. ASSESSMENT: 1. Hypertension, longstanding with severe left ventricular hypertrophy. 2. Diastolic heart failure. PLAN: 1. Change from amlodipine to Procardia XL 60 mg a day, dose could be increased to 90 if needed. 2. Stop nitroglycerin paste and change to isosorbide. 3. She is on low-dose furosemide that could be changed to oral. In fact, we will go ahead and do that. 4. Okay to me to go to medical. We will sign off. Please re-notify if needed. Her primary care and mystery shopper are at the [facility]. Job ID: [id number]
--- NOTE | 2020-04-15 13:11 | PRG ---
DATE OF SERVICE: 04/15/2020 SUBJECTIVE: Yaneli Carroll is stable overnight. She has no complaints. OBJECTIVE: VITAL SIGNS: She is afebrile, heart rate 75, blood pressure 158/66. LUNGS: Clear. HEART: Regular rhythm. ABDOMEN: Soft and nontender. EXTREMITIES: Without edema. LABORATORY DATA: White count 4, hemoglobin 8.1, platelets 184. Electrolytes are normal. Creatinine is 1.78. Creatinine was 1.76 yesterday. IMPRESSION: 1. Pneumonia. 2. Severe left ventricular hypertrophy with a component of diastolic dysfunction. 3. Acute on chronic kidney disease. 4. Deconditioning. 5. Dementia. PLAN: In my opinion, she is stable to move out of the Critical Care Unit. Job ID: [id number]
[2020-04-15] MEDS: Furosemide 20 MG TAB PO SCH (13:20)
--- NOTE | 2020-04-15 14:15 | PDOC.HOSPP ---
- Subjective Encounter Date: 04/15/20 Encounter Time: 11:30 Subjective: no sob, feels better is not eating much - Objective Vital Signs & Weight: Vital Signs (12 hours) Temp Pulse Resp BP BP Pulse Ox 04/15/20 13:45 99.9 F H 75 18 156/75 H 100 04/15/20 12:45 98.9 F 04/15/20 10:35 100 04/15/20 09:00 102.0 F H 04/15/20 08:38 80 177/70 H 04/15/20 08:00 98 04/15/20 06:00 99.3 F Weight Admit Weight 171 lb 15.369 oz Weight 172 lb 9.951 oz Most Recent Monitor Data Heart Rate from ECG 75 NIBP 158/66 NIBP BP-Mean 96 Respiration from ECG 23 SpO2 100 I&O: 04/14/20 04/15/20 04/16/20 06:59 06:59 06:59 Intake Total 491 460 100 Output Total 300 2000 500 Balance 191 -1540 -400 Result Diagrams: 04/15/20 04:00 04/15/20 03:30 Additional Labs: Accuchecks 04/15/20 04/14/20 04/14/20 12:30 21:27 17:31 POC Glucose 124 H 120 H 146 H 04/14/20 04/12/20 13:05 23:41 POC Glucose 141 H 147 H Hospitalist ROS - Medication Medications: Active Medications Generic Name Dose Route Start Last Admin Trade Name Freq PRN Reason Stop Dose Admin Acetaminophen 650 mg 04/13/20 08:05 04/14/20 19:39 Acetaminophen 325 Mg Tab PO 650 mg Q6H PRN Administration Headache/Fever or Pain Aspirin 81 mg 04/13/20 09:00 04/15/20 08:37 Aspirin Chewable 81 Mg Tab PO 81 mg DAILY THALIA Administration Carvedilol 12.5 mg 04/14/20 21:00 04/15/20 08:37 Carvedilol 25 Mg Tab PO 12.5 mg BID THALIA Administration Clonidine 0.1 mg 04/12/20 11:34 04/13/20 21:30 Clonidine 0.1 Mg Tab PO 0.1 mg Q4H PRN Administration SBP GREATER THAN 160 Clopidogrel Bisulfate 75 mg 04/13/20 09:00 04/15/20 08:37 Clopidogrel Bisulfate 75 Mg Tab PO 75 mg DAILY THALIA Administration Ferrous Sulfate 325 mg 04/12/20 21:00 04/15/20 08:38 Ferrous Sulfate 325 Mg Tab PO 325 mg TID THALIA Administration Furosemide 20 mg 04/15/20 14:00 04/15/20 13:20 Furosemide 20 Mg Tab PO 20 mg 0900,1400 THALIA Administration Heparin Sodium (Porcine) 5,000 units 04/11/20 21:00 04/15/20 08:38 Heparin 5,000 Units/Ml Vial SC 5,000 units TID THALIA Administration Hydralazine HCl 75 mg 04/14/20 09:00 04/15/20 08:38 Hydralazine 25 Mg Tab PO 75 mg TID THALIA Administration Ceftriaxone Sodium 1 gm/ 100 mls @ 200 mls/hr 04/12/20 10:00 04/15/20 09:15 Sodium Chloride IVPB 100 mls 1000 THALIA Administration Metronidazole 500 mg/ Device 100 mls @ 100 mls/hr 04/12/20 14:00 04/15/20 13:21 IVPB 100 mls Q8HR THALIA Administration Insulin Human Lispro 0 units 04/11/20 09:59 04/14/20 04:55 Humalog 300 Units/3 Ml Vial SC 2 unit .MILD SLIDING SCALE PRN Administration Mild Correctional Scale Isosorbide Mononitrate 60 mg 04/12/20 21:00 04/15/20 08:37 Isosorbide Mononitrate Er 60 Mg Tab PO 60 mg BID THALIA Administration Labetalol HCl 10 mg 04/12/20 08:01 04/13/20 22:05 Labetalol Hcl 100 Mg/20 Ml Vial SLOW IVP 10 mg Q4H PRN Administration SBP > 180 and HR >/= 70 Magnesium Oxide 400 mg 04/13/20 09:00 04/15/20 08:38 Magnesium Oxide 400 Mg Tab PO 400 mg DAILY THALIA Administration Trazodone HCl 50 mg 04/13/20 09:00 04/15/20 08:38 Trazodone Hcl 50 Mg Tab PO 50 mg DAILY THALIA Administration - Exam General Appearance: awake alert Eye: PERRL, anicteric sclera ENT: no oropharyngeal lesions, moist mucosa Neck: supple, no JVD Heart: RRR, no murmur Respiratory: no wheezes, no rales, rhonchi Gastrointestinal: soft, non-tender, non-distended, normal bowel sounds Extremities: no cyanosis, 1+ LE edema Neurological: cranial nerve grossly intact, no focal deficits Psychiatric: A&O x 3 Hosp A/P (1) Aspiration pneumonia Code(s): J69.0 - PNEUMONITIS DUE TO INHALATION OF FOOD AND VOMIT Status: Acute Qualifiers: Aspiration pneumonia type: due to regurgitated food Laterality: right Lung location: middle lobe of lung Qualified Code(s): J69.0 - Pneumonitis due to inhalation of food and vomit (2) Sepsis Code(s): A41.9 - SEPSIS, UNSPECIFIED ORGANISM Status: Acute Qualifiers: Sepsis type: sepsis due to unspecified organism Sepsis acute organ dysfunction status: without acute organ dysfunction Qualified Code(s): A41.9 - Sepsis, unspecified organism (3) HTN (hypertension) Code(s): I10 - ESSENTIAL (PRIMARY) HYPERTENSION Status: Chronic Qualifiers: Hypertension type: essential hypertension Qualified Code(s): I10 - Essential (primary) hypertension (4) Functional quadriplegia Code(s): R53.2 - FUNCTIONAL QUADRIPLEGIA Status: Chronic (5) Dysphagia Code(s): R13.10 - DYSPHAGIA, UNSPECIFIED Status: Acute Qualifiers: Dysphagia type: unspecified Qualified Code(s): R13.10 - Dysphagia, unspecified (6) DM type 2 (diabetes mellitus, type 2) Status: Chronic Qualifiers: Diabetes mellitus oil heaterman insulin use: with custodial use Diabetes mellitus complication status: with kidney complications Diabetes mellitus complication detail: with chronic kidney disease Chronic kidney disease stage: stage 3 (moderate) (7) Hypoglycemia Code(s): E16.2 - HYPOGLYCEMIA, UNSPECIFIED Status: Resolved (8) CKD (chronic kidney disease) stage 3, GFR 30-59 ml/min Code(s): N18.30 - CHRONIC KIDNEY DISEASE, STAGE 3 UNSPECIFIED Status: Chronic (9) Moderate protein-calorie malnutrition Code(s): E44.0 - MODERATE PROTEIN-CALORIE MALNUTRITION Status: Chronic (10) FTT (failure to thrive) in adult Status: Chronic (11) Acute exacerbation of CHF (congestive heart failure) Code(s): I50.9 - HEART FAILURE, UNSPECIFIED Status: Acute Qualifiers: Heart failure type: diastolic Qualified Code(s): I50.33 - Acute on chronic diastolic (congestive) heart failure (12) Hypertensive urgency Code(s): I16.0 - HYPERTENSIVE URGENCY Status: Resolved - Plan is on ceftriaxone and flagyl, nebs continue asp, plavix, coreg, hydralazine, imdur, lasix and procardia xl, htn is well controlled, is off cardene from 9am yesterday. abg and cxr reviewed, echo shows good ef with concentric lvh and diastolic dysfunction discussed code status with patient, she does not want to be intubated but cpr and cardiac resuscitation is ok d/w her daughter and gave update 04/14/20 prognosis guarded aspiration precautions, diet per speech advice covid -ve has generalized anasarca, worse in upper extremities PT to exercise her as tolerated may switch to augmentin in am if stable still has temp of 102 last 24hrs.
[2020-04-15] MEDS: Acetaminophen 325 MG TAB PO PRN (16:25)
--- NOTE | 2020-04-15 16:26 | ULT ---
Venous duplex sonogram bilateral lower extremity HISTORY: Bilateral leg pain and edema. FINDINGS: Each common femoral vein and greater saphenous junction were evaluated along with each femo ral, deep femoral, popliteal, and posterior tibial vein. There is good color and spectral Doppler flow, compression, and augmentation. IMPRESSION : Normal exam.
[2020-04-16] MEDS: metroNIDAZOLE 500 MG in Premix Bag 1 BAG IVPB SCH (05:19)
[2020-04-16 05:52] LABS: #Lymphocytes 0.7 thou/uL (1.20-3.40); #Monocytes 0.3 thou/uL (0.11-0.59); #Neutrophils 2.7 thou/uL (1.40-6.50); %Basophils 0.6 % (0.0-1.0); %Eosinophils 0.5 % (0.0-10.0); %Lymphocytes 19.6 % (21.0-51.0); %Neutrophils 70.3 % (42.0-75.0); Hemoglobin 8.8 g/dL (12.0-16.0); Mean Corpuscular HGB CONC 32.4 g/dL (32.0-36.0); Mean Corpuscular Hemoglobin 27.9 pg (27.0-31.0); Mean Corpuscular Volume 86.1 fL (78.0-98.0); Mean Platelet Volume 7.2 fL (7.4-10.4); Platelet Count 187 thou/uL (130-400); RBC Distribution Width 16.1 % (11.5-14.5); Red Blood Cell (RBC) Count 3.15 mill/uL (4.20-5.40); White Blood Cell (WBC) Count 3.8 thou/uL (4.8-10.8)
[2020-04-16 06:13] LABS: Anion Gap 13 mmol/L (10-20); BUN (Urea Nitrogen) 26 mg/dL (9.8-20.1); Calc. Creatinine Clearance 31 mL/min (70-130); Calcium 8.7 mg/dL (7.8-10.44); Carbon Dioxide 28 mmol/L (23-31); Chloride 103 mmol/L (98-107); Estimated GFR-MDRD 25; Glucose 115 mg/dL (83-110); Iron 21 ug/dL (50-170); Iron Binding Capacity, Total 140 mcg/dL (265-497); Potassium 3.8 mmol/L (3.5-5.1); Sodium 140 mmol/L (136-145)
[2020-04-16] MEDS: hydrALAZINE 25 MG TAB PO SCH ×3 (08:19→21:07)
[2020-04-16] MEDS: Acetaminophen 325 MG TAB PO PRN ×2 (08:20→21:06)
[2020-04-16] MEDS: Magnesium Oxide 400 MG TAB PO SCH (08:20)
[2020-04-16] MEDS: Furosemide 20 MG TAB PO SCH ×2 (08:20→15:09)
[2020-04-16] MEDS: Ferrous Sulfate 325 MG TAB PO SCH ×3 (08:20→21:07)
[2020-04-16] MEDS: Clopidogrel Bisulfate 75 MG TAB PO SCH (08:20)
[2020-04-16] MEDS: Carvedilol 25 MG TAB PO SCH ×2 (08:21→21:07)
[2020-04-16] MEDS: Aspirin Chewable 81 MG TAB PO SCH (08:21)
[2020-04-16] MEDS: Heparin 5,000 UNITS/ML VIAL SC SCH ×3 (08:21→21:08)
[2020-04-16] MEDS: traZODone HCl 50 MG TAB PO SCH (08:21)
[2020-04-16] MEDS ORDERED: NIFEdipine XL 60 MG TAB PO SCH (09:00)
[2020-04-16] MEDS: NIFEdipine XL 90 MG TAB PO SCH (10:20)
[2020-04-16] MEDS: cefTRIAXone\\ROCEPHIN 1 GM in Sodium Chloride 0.9% 100 ML IVPB SCH (10:20)
--- NOTE | 2020-04-16 13:33 | PDOC.HOSPP ---
- Subjective Encounter Date: 04/16/20 Encounter Time: 08:30 Subjective: no sob or chest pain has loss of appetite - Objective Vital Signs & Weight: Vital Signs (12 hours) Temp Pulse Resp BP Pulse Ox 04/16/20 10:20 81 04/16/20 08:21 81 04/16/20 08:19 81 04/16/20 08:00 96 04/16/20 07:48 100.4 F H 81 30 H 184/74 H 96 04/16/20 04:11 98.1 F 78 18 168/73 H 98 Weight Admit Weight 171 lb 15.369 oz Weight 167 lb 2 oz Most Recent Monitor Data Heart Rate from ECG 75 NIBP 158/66 NIBP BP-Mean 96 Respiration from ECG 23 SpO2 100 I&O: 04/15/20 04/16/20 04/17/20 06:59 06:59 06:59 Intake Total 460 790 120 Output Total 1999 1400 Balance -1540 -610 120 Result Diagrams: 04/16/20 05:29 04/16/20 05:29 Additional Labs: Accuchecks 04/16/20 04/16/20 04/16/20 11:00 04:13 00:33 POC Glucose 136 H 116 H 137 H 04/15/20 01:39 POC Glucose 103 H Hospitalist ROS - Medication Medications: Active Medications Generic Name Dose Route Start Last Admin Trade Name Freq PRN Reason Stop Dose Admin Acetaminophen 650 mg 04/13/20 08:05 04/16/20 08:20 Acetaminophen 325 Mg Tab PO 650 mg Q6H PRN Administration Headache/Fever or Pain Aspirin 81 mg 04/13/20 09:00 04/16/20 08:21 Aspirin Chewable 81 Mg Tab PO 81 mg DAILY THALIA Administration Carvedilol 12.5 mg 04/14/20 21:00 04/16/20 08:21 Carvedilol 25 Mg Tab PO 12.5 mg BID THALIA Administration Clonidine 0.1 mg 04/12/20 11:34 04/13/20 21:30 Clonidine 0.1 Mg Tab PO 0.1 mg Q4H PRN Administration SBP GREATER THAN 160 Clopidogrel Bisulfate 75 mg 04/13/20 09:00 04/16/20 08:20 Clopidogrel Bisulfate 75 Mg Tab PO 75 mg DAILY THALIA Administration Ferrous Sulfate 325 mg 04/12/20 21:00 04/16/20 08:20 Ferrous Sulfate 325 Mg Tab PO 325 mg TID THALIA Administration Furosemide 20 mg 04/15/20 14:00 04/16/20 08:20 Furosemide 20 Mg Tab PO 20 mg 0900,1400 THALIA Administration Heparin Sodium (Porcine) 5,000 units 04/11/20 21:00 04/16/20 08:21 Heparin 5,000 Units/Ml Vial SC 5,000 units TID THALIA Administration Hydralazine HCl 75 mg 04/14/20 09:00 04/16/20 08:19 Hydralazine 25 Mg Tab PO 75 mg TID THALIA Administration Insulin Human Lispro 0 units 04/11/20 09:59 04/14/20 04:55 Humalog 300 Units/3 Ml Vial SC 2 unit .MILD SLIDING SCALE PRN Administration Mild Correctional Scale Isosorbide Mononitrate 60 mg 04/12/20 21:00 04/16/20 08:21 Isosorbide Mononitrate Er 60 Mg Tab PO 60 mg BID THALIA Administration Labetalol HCl 10 mg 04/12/20 08:01 04/13/20 22:05 Labetalol Hcl 100 Mg/20 Ml Vial SLOW IVP 10 mg Q4H PRN Administration SBP > 180 and HR >/= 70 Magnesium Oxide 400 mg 04/13/20 09:00 04/16/20 08:20 Magnesium Oxide 400 Mg Tab PO 400 mg DAILY THALIA Administration Nifedipine 90 mg 04/16/20 09:00 04/16/20 10:20 Nifedipine Xl 90 Mg Tab PO 90 mg DAILY THALIA Administration Trazodone HCl 50 mg 04/13/20 09:00 04/16/20 08:21 Trazodone Hcl 50 Mg Tab PO 50 mg DAILY THALIA Administration - Exam General Appearance: awake alert, ill appearing Eye: PERRL, anicteric sclera ENT: no oropharyngeal lesions, moist mucosa Neck: supple, no JVD Heart: RRR, no murmur Respiratory: no wheezes, no rales, rhonchi Gastrointestinal: soft, non-tender, non-distended, normal bowel sounds Extremities: no cyanosis, 1+ LE edema Neurological: cranial nerve grossly intact, no focal deficits Psychiatric: A&O x 3 Hosp A/P (1) Aspiration pneumonia Code(s): J69.0 - PNEUMONITIS DUE TO INHALATION OF FOOD AND VOMIT Status: Acute Qualifiers: Aspiration pneumonia type: due to regurgitated food Laterality: right Lung location: middle lobe of lung Qualified Code(s): J69.0 - Pneumonitis due to inhalation of food and vomit (2) Sepsis Code(s): A41.9 - SEPSIS, UNSPECIFIED ORGANISM Status: Acute Qualifiers: Sepsis type: sepsis due to unspecified organism Sepsis acute organ dysfunction status: without acute organ dysfunction Qualified Code(s): A41.9 - Sepsis, unspecified organism (3) HTN (hypertension) Code(s): I10 - ESSENTIAL (PRIMARY) HYPERTENSION Status: Chronic Qualifiers: Hypertension type: essential hypertension Qualified Code(s): I10 - Essential (primary) hypertension (4) Functional quadriplegia Code(s): R53.2 - FUNCTIONAL QUADRIPLEGIA Status: Chronic (5) Dysphagia Code(s): R13.10 - DYSPHAGIA, UNSPECIFIED Status: Acute Qualifiers: Dysphagia type: unspecified Qualified Code(s): R13.10 - Dysphagia, unspecified (6) DM type 2 (diabetes mellitus, type 2) Status: Chronic Qualifiers: Diabetes mellitus assisted insulin use: with assisted use Diabetes mellitus complication status: with kidney complications Diabetes mellitus complication detail: with chronic kidney disease Chronic kidney disease stage: stage 3 (moderate) (7) Hypoglycemia Code(s): E16.2 - HYPOGLYCEMIA, UNSPECIFIED Status: Resolved (8) CKD (chronic kidney disease) stage 3, GFR 30-59 ml/min Code(s): N18.30 - CHRONIC KIDNEY DISEASE, STAGE 3 UNSPECIFIED Status: Chronic (9) Moderate protein-calorie malnutrition Code(s): E44.0 - MODERATE PROTEIN-CALORIE MALNUTRITION Status: Chronic (10) FTT (failure to thrive) in adult Status: Chronic (11) Acute exacerbation of CHF (congestive heart failure) Code(s): I50.9 - HEART FAILURE, UNSPECIFIED Status: Acute Qualifiers: Heart failure type: diastolic Qualified Code(s): I50.33 - Acute on chronic diastolic (congestive) heart failure (12) Hypertensive urgency Code(s): I16.0 - HYPERTENSIVE URGENCY Status: Resolved - Plan is on augmentin, nebs continue asp, plavix, coreg, hydralazine, imdur, lasix and procardia xl, htn is fairly controlled echo shows good ef with concentric lvh and diastolic dysfunction discussed code status with patient, she does not want to be intubated but cpr and cardiac resuscitation is ok 04/14/20 d/w her daughter and gave update 04/14/20, 04/16/20. prognosis guarded aspiration precautions, diet per speech advice covid -ve has generalized anasarca, worse in upper extremities PT to exercise her as tolerated still has temp of 100 last 24hrs.
--- NOTE | 2020-04-16 19:52 | PRG ---
DATE OF SERVICE: 04/16/2020 SUBJECTIVE: Glen is in no distress. She is resting comfortably. OBJECTIVE: VITAL SIGNS: Heart rate is 80, respiratory rates in the 20s. Vital signs have been stable. LUNGS: Otherwise, lungs are clear. HEART: Regular rhythm. ABDOMEN: Soft. IMPRESSION: Pneumonia, likely aspiration mediated. PLAN: In my opinion, she is a candidate to go back to her senior care. We will sign off. Job ID: [id number]
[2020-04-16] MEDS: Amoxicillin/Potassium Clav 500 MG TAB PO SCH (21:07)
[2020-04-17] MEDS: Amoxicillin/Potassium Clav 500 MG TAB PO SCH ×2 (07:58→20:16)
[2020-04-17] MEDS: NIFEdipine XL 90 MG TAB PO SCH (07:58)
[2020-04-17] MEDS: Aspirin Chewable 81 MG TAB PO SCH (07:59)
[2020-04-17] MEDS: hydrALAZINE 25 MG TAB PO SCH ×3 (07:59→20:16)
[2020-04-17] MEDS: traZODone HCl 50 MG TAB PO SCH (07:59)
[2020-04-17] MEDS: Carvedilol 25 MG TAB PO SCH ×2 (08:00→20:15)
[2020-04-17] MEDS: Ferrous Sulfate 325 MG TAB PO SCH ×3 (08:00→20:16)
[2020-04-17] MEDS: Magnesium Oxide 400 MG TAB PO SCH (08:01)
[2020-04-17] MEDS: Clopidogrel Bisulfate 75 MG TAB PO SCH (08:01)
[2020-04-17] MEDS: Furosemide 20 MG TAB PO SCH ×2 (08:01→15:46)
[2020-04-17] MEDS: Heparin 5,000 UNITS/ML VIAL SC SCH ×3 (08:15→20:15)
--- NOTE | 2020-04-17 13:59 | PDOC.HOSPP ---
- Subjective Encounter Date: 04/17/20 Encounter Time: 08:00 Subjective: no sob, is eating around 50% of her tray had temp of 100 this am - Objective Vital Signs & Weight: Vital Signs (12 hours) Temp Pulse Resp BP BP Pulse Ox 04/17/20 11:11 98.2 F 64 22 H 115/67 99 04/17/20 08:01 99.7 F H 75 16 195/78 H 99 04/17/20 08:00 99 04/17/20 07:59 76 195/78 H 04/17/20 07:58 73 195/78 H Weight Admit Weight 171 lb 15.369 oz Weight 167 lb 2 oz Most Recent Monitor Data Heart Rate from ECG 75 NIBP 158/66 NIBP BP-Mean 96 Respiration from ECG 23 SpO2 100 I&O: 04/16/20 04/17/20 04/18/20 06:59 06:59 06:59 Intake Total 790 560 Output Total 1400 1 Balance -610 559 Result Diagrams: 04/16/20 05:29 04/16/20 05:29 Additional Labs: Accuchecks 04/17/20 04/17/20 04/16/20 11:10 04:34 20:54 POC Glucose 184 H 128 H 132 H 04/16/20 16:03 POC Glucose 132 H Hospitalist ROS - Medication Medications: Active Medications Generic Name Dose Route Start Last Admin Trade Name Freq PRN Reason Stop Dose Admin Acetaminophen 650 mg 04/13/20 08:05 04/16/20 21:06 Acetaminophen 325 Mg Tab PO 650 mg Q6H PRN Administration Headache/Fever or Pain Amoxicillin/Clavulanate Potassium 500 mg 04/16/20 21:00 04/17/20 07:58 Amoxicillin/Potassium Clav 500 Mg Tab PO 500 mg Q12HR THALIA Administration Aspirin 81 mg 04/13/20 09:00 04/17/20 07:59 Aspirin Chewable 81 Mg Tab PO 81 mg DAILY THALIA Administration Carvedilol 12.5 mg 04/14/20 21:00 04/17/20 08:00 Carvedilol 25 Mg Tab PO 12.5 mg BID THALIA Administration Clonidine 0.1 mg 04/12/20 11:34 04/13/20 21:30 Clonidine 0.1 Mg Tab PO 0.1 mg Q4H PRN Administration SBP GREATER THAN 160 Clopidogrel Bisulfate 75 mg 04/13/20 09:00 04/17/20 08:01 Clopidogrel Bisulfate 75 Mg Tab PO 75 mg DAILY THALIA Administration Ferrous Sulfate 325 mg 04/12/20 21:00 04/17/20 08:00 Ferrous Sulfate 325 Mg Tab PO 325 mg TID THALIA Administration Furosemide 20 mg 04/15/20 14:00 04/17/20 08:01 Furosemide 20 Mg Tab PO 20 mg 0900,1400 THALIA Administration Heparin Sodium (Porcine) 5,000 units 04/11/20 21:00 04/17/20 08:15 Heparin 5,000 Units/Ml Vial SC 5,000 units TID THALIA Administration Hydralazine HCl 75 mg 04/14/20 09:00 04/17/20 07:59 Hydralazine 25 Mg Tab PO 75 mg TID THALIA Administration Insulin Human Lispro 0 units 04/11/20 09:59 04/14/20 04:55 Humalog 300 Units/3 Ml Vial SC 2 unit .MILD SLIDING SCALE PRN Administration Mild Correctional Scale Isosorbide Mononitrate 60 mg 04/12/20 21:00 04/17/20 07:59 Isosorbide Mononitrate Er 60 Mg Tab PO 60 mg BID THALIA Administration Labetalol HCl 10 mg 04/12/20 08:01 04/13/20 22:05 Labetalol Hcl 100 Mg/20 Ml Vial SLOW IVP 10 mg Q4H PRN Administration SBP > 180 and HR >/= 70 Magnesium Oxide 400 mg 04/13/20 09:00 04/17/20 08:01 Magnesium Oxide 400 Mg Tab PO 400 mg DAILY THALIA Administration Nifedipine 90 mg 04/16/20 09:00 04/17/20 07:58 Nifedipine Xl 90 Mg Tab PO 90 mg DAILY THALIA Administration Trazodone HCl 50 mg 04/13/20 09:00 04/17/20 07:59 Trazodone Hcl 50 Mg Tab PO 50 mg DAILY THALIA Administration - Exam General Appearance: awake alert Eye: PERRL, anicteric sclera ENT: no oropharyngeal lesions, moist mucosa Neck: supple, no JVD Heart: RRR, no murmur Respiratory: no wheezes, no rales, rhonchi Gastrointestinal: soft, non-tender, non-distended, normal bowel sounds Extremities: no cyanosis, 1+ LE edema Neurological: cranial nerve grossly intact, no focal deficits Hosp A/P (1) Aspiration pneumonia Code(s): J69.0 - PNEUMONITIS DUE TO INHALATION OF FOOD AND VOMIT Status: Acute Qualifiers: Aspiration pneumonia type: due to regurgitated food Laterality: right Lung location: middle lobe of lung Qualified Code(s): J69.0 - Pneumonitis due to inhalation of food and vomit (2) Sepsis Code(s): A41.9 - SEPSIS, UNSPECIFIED ORGANISM Status: Acute Qualifiers: Sepsis type: sepsis due to unspecified organism Sepsis acute organ dysfunction status: without acute organ dysfunction Qualified Code(s): A41.9 - Sepsis, unspecified organism (3) HTN (hypertension) Code(s): I10 - ESSENTIAL (PRIMARY) HYPERTENSION Status: Chronic Qualifiers: Hypertension type: essential hypertension Qualified Code(s): I10 - Essential (primary) hypertension (4) Functional quadriplegia Code(s): R53.2 - FUNCTIONAL QUADRIPLEGIA Status: Chronic (5) Dysphagia Code(s): R13.10 - DYSPHAGIA, UNSPECIFIED Status: Acute Qualifiers: Dysphagia type: unspecified Qualified Code(s): R13.10 - Dysphagia, unspecified (6) DM type 2 (diabetes mellitus, type 2) Status: Chronic Qualifiers: Diabetes mellitus card dealer insulin use: with shelter use Diabetes mellitus complication status: with kidney complications Diabetes mellitus complication detail: with chronic kidney disease Chronic kidney disease stage: stage 3 (moderate) (7) Hypoglycemia Code(s): E16.2 - HYPOGLYCEMIA, UNSPECIFIED Status: Resolved (8) CKD (chronic kidney disease) stage 3, GFR 30-59 ml/min Code(s): N18.30 - CHRONIC KIDNEY DISEASE, STAGE 3 UNSPECIFIED Status: Chronic (9) Moderate protein-calorie malnutrition Code(s): E44.0 - MODERATE PROTEIN-CALORIE MALNUTRITION Status: Chronic (10) FTT (failure to thrive) in adult Status: Chronic (11) Acute exacerbation of CHF (congestive heart failure) Code(s): I50.9 - HEART FAILURE, UNSPECIFIED Status: Acute Qualifiers: Heart failure type: diastolic Qualified Code(s): I50.33 - Acute on chronic diastolic (congestive) heart failure (12) Hypertensive urgency Code(s): I16.0 - HYPERTENSIVE URGENCY Status: Resolved - Plan is on augmentin, nebs, still has temp of 100 continue asp, plavix, coreg, hydralazine, imdur, lasix and procardia xl, htn is fairly controlled echo shows good ef with concentric lvh and diastolic dysfunction discussed code status with patient, she does not want to be intubated but cpr and cardiac resuscitation is ok 04/14/20 d/w her daughter and gave update 04/14/20, 04/16/20. prognosis guarded aspiration precautions, diet per speech advice covid -ve has generalized anasarca, worse in upper extremities PT to exercise her as tolerated want her temp to reduce for dc plan to snf
[2020-04-17] MEDS: Acetaminophen 325 MG TAB PO PRN (20:15)
[2020-04-18] MEDS: NIFEdipine XL 90 MG TAB PO SCH (08:24)
[2020-04-18] MEDS: Amoxicillin/Potassium Clav 500 MG TAB PO SCH ×2 (08:24→20:37)
[2020-04-18] MEDS: traZODone HCl 50 MG TAB PO SCH (08:25)
[2020-04-18] MEDS: Magnesium Oxide 400 MG TAB PO SCH (08:25)
[2020-04-18] MEDS: hydrALAZINE 25 MG TAB PO SCH ×3 (08:25→20:37)
[2020-04-18] MEDS: Aspirin Chewable 81 MG TAB PO SCH (08:25)
[2020-04-18] MEDS: Carvedilol 25 MG TAB PO SCH ×2 (08:25→20:38)
[2020-04-18] MEDS: Furosemide 20 MG TAB PO SCH ×2 (08:26→16:10)
[2020-04-18] MEDS: Ferrous Sulfate 325 MG TAB PO SCH ×3 (08:26→20:38)
[2020-04-18] MEDS: Clopidogrel Bisulfate 75 MG TAB PO SCH (08:26)
[2020-04-18] MEDS: Heparin 5,000 UNITS/ML VIAL SC SCH ×3 (08:55→20:38)
--- NOTE | 2020-04-18 14:05 | CT ---
CT CHEST WITHOUT CONTRAST CLINICAL INDICATION: Aspiration pneumonia with fever. Possible empyema. COMPARISON: None FINDINGS: Aorta: Limited evaluation due to lack of intravenous contrast. Vascular calcifications are seen in th e thoracic aorta with vascular calcifications also seen in the coronary arteries. Lungs: There are patchy parenchymal densities seen at each lung base with developing areas of consoli dation at the right lung base. In addition, scattered patchy and nodular parenchymal airspace densities are seen in the upper lobes and right middle lobe. Findings are worrisome for infectious pr ocess. Atypical infectious process is a possibility. Aspiration pneumonitis cannot be entirely excluded, but parenchymal opacities are usually not seen in the upper and anterior lung zones. A smal l right and very tiny left pleural effusions are present. This exam is obtained in expiratory phase of imaging. Mediastinum: The heart is enlarged with tiny pericardial effusion. Lack of intravenous contrast limit s evaluation of the mediastinal structures. There are mildly prominent prevascular space lymph nodes which are not enlarged by CT size criteria largest measuring 7 mm in short axis dimension. Find ings could be related to reactive lymph nodes. Thyroid gland: Incompletely assessed on this exam. Osseous structures: No acute process. Chest wall: There is generalized mild subcutaneous edema with greater degree of subcutaneous edema an d skin thickening involving each breast. Upper abdomen: Postcholecystectomy changes are noted. Trace amount of free fluid is seen anterior to the visualized liver. IMPRESSION: 1. Multifocal patchy and nodular parenchymal opacities with greater patchy parenchymal changes at eac h lung base and on the right. Findings are worrisome for infectious process and possibly atypical infectious process. Follow-up to resolution is recommended. 2. Small right and tiny left pleural effusions. No loculated pleural fluid collection is seen to sugg est empyema. 3. Nonspecific nonenlarged mediastinal lymph nodes which do appear increased in number and may be justine ctive in origin. 4. Mild cardiomegaly with trace pericardial effusion. 5. Subcutaneous edema much greater involving each breast with associated skin thickening. Clinical co rrelation is recommended, but these findings are probably attributable to anasarca. Follow-up evaluation is recommended to ensure resolution.
--- NOTE | 2020-04-18 14:44 | PDOC.HOSPP ---
- Subjective Encounter Date: 04/18/20 Encounter Time: 08:00 Subjective: no new complaints is eating better per staff more awake and interacts but gets sob - Objective Vital Signs & Weight: Vital Signs (12 hours) Temp Pulse Resp BP BP Pulse Ox 04/18/20 12:00 99.0 F 74 18 180/69 H 99 04/18/20 08:25 75 04/18/20 08:24 75 187/80 H 04/18/20 08:00 100 04/18/20 07:13 97.6 F 75 20 187/80 H 100 Weight Admit Weight 171 lb 15.369 oz Weight 167 lb 2 oz Most Recent Monitor Data Heart Rate from ECG 75 NIBP 158/66 NIBP BP-Mean 96 Respiration from ECG 23 SpO2 100 I&O: 04/17/20 04/18/20 04/19/20 06:59 06:59 06:59 Intake Total 560 537 Output Total 1 Balance 559 537 Result Diagrams: 04/16/20 05:29 04/16/20 05:29 Additional Labs: Accuchecks 04/18/20 04/18/20 04/17/20 11:49 05:19 19:34 POC Glucose 149 H 126 H 149 H 04/17/20 15:57 POC Glucose 191 H Hospitalist ROS - Medication Medications: Active Medications Generic Name Dose Route Start Last Admin Trade Name Freq PRN Reason Stop Dose Admin Acetaminophen 650 mg 04/13/20 08:05 04/17/20 20:15 Acetaminophen 325 Mg Tab PO 650 mg Q6H PRN Administration Headache/Fever or Pain Amoxicillin/Clavulanate Potassium 500 mg 04/16/20 21:00 04/18/20 08:24 Amoxicillin/Potassium Clav 500 Mg Tab PO 500 mg Q12HR THALIA Administration Aspirin 81 mg 04/13/20 09:00 04/18/20 08:25 Aspirin Chewable 81 Mg Tab PO 81 mg DAILY THALIA Administration Carvedilol 12.5 mg 04/14/20 21:00 04/18/20 08:25 Carvedilol 25 Mg Tab PO 12.5 mg BID THALIA Administration Clonidine 0.1 mg 04/12/20 11:34 04/13/20 21:30 Clonidine 0.1 Mg Tab PO 0.1 mg Q4H PRN Administration SBP GREATER THAN 160 Clopidogrel Bisulfate 75 mg 04/13/20 09:00 04/18/20 08:26 Clopidogrel Bisulfate 75 Mg Tab PO 75 mg DAILY THALIA Administration Ferrous Sulfate 325 mg 04/12/20 21:00 04/18/20 08:26 Ferrous Sulfate 325 Mg Tab PO 325 mg TID THALIA Administration Furosemide 20 mg 04/15/20 14:00 04/18/20 08:26 Furosemide 20 Mg Tab PO 20 mg 0900,1400 THALIA Administration Heparin Sodium (Porcine) 5,000 units 04/11/20 21:00 04/18/20 08:55 Heparin 5,000 Units/Ml Vial SC 5,000 units TID THALIA Administration Hydralazine HCl 75 mg 04/14/20 09:00 04/18/20 08:25 Hydralazine 25 Mg Tab PO 75 mg TID THALIA Administration Insulin Human Lispro 0 units 04/11/20 09:59 04/14/20 04:55 Humalog 300 Units/3 Ml Vial SC 2 unit .MILD SLIDING SCALE PRN Administration Mild Correctional Scale Isosorbide Mononitrate 60 mg 04/12/20 21:00 04/18/20 08:26 Isosorbide Mononitrate Er 60 Mg Tab PO 60 mg BID THALIA Administration Labetalol HCl 10 mg 04/12/20 08:01 04/13/20 22:05 Labetalol Hcl 100 Mg/20 Ml Vial SLOW IVP 10 mg Q4H PRN Administration SBP > 180 and HR >/= 70 Magnesium Oxide 400 mg 04/13/20 09:00 04/18/20 08:25 Magnesium Oxide 400 Mg Tab PO 400 mg DAILY THALIA Administration Nifedipine 90 mg 04/16/20 09:00 04/18/20 08:24 Nifedipine Xl 90 Mg Tab PO 90 mg DAILY THALIA Administration Trazodone HCl 50 mg 04/13/20 09:00 04/18/20 08:25 Trazodone Hcl 50 Mg Tab PO 50 mg DAILY THALIA Administration - Exam General Appearance: awake alert, ill appearing Eye: anicteric sclera ENT: no oropharyngeal lesions, moist mucosa Neck: supple, no JVD Heart: RRR, no murmur Respiratory: no wheezes, rales, rhonchi Gastrointestinal: soft, non-tender, non-distended, normal bowel sounds Extremities: no cyanosis, 1+ LE edema Extremities - other findings: edema is more in both UL Neurological: cranial nerve grossly intact, no focal deficits Hosp A/P (1) Aspiration pneumonia Code(s): J69.0 - PNEUMONITIS DUE TO INHALATION OF FOOD AND VOMIT Status: Acute Qualifiers: Aspiration pneumonia type: due to regurgitated food Laterality: right Lung location: middle lobe of lung Qualified Code(s): J69.0 - Pneumonitis due to inhalation of food and vomit (2) Sepsis Code(s): A41.9 - SEPSIS, UNSPECIFIED ORGANISM Status: Acute Qualifiers: Sepsis type: sepsis due to unspecified organism Sepsis acute organ dysfunction status: without acute organ dysfunction Qualified Code(s): A41.9 - Sepsis, unspecified organism (3) HTN (hypertension) Code(s): I10 - ESSENTIAL (PRIMARY) HYPERTENSION Status: Chronic Qualifiers: Hypertension type: essential hypertension Qualified Code(s): I10 - Essential (primary) hypertension (4) Functional quadriplegia Code(s): R53.2 - FUNCTIONAL QUADRIPLEGIA Status: Chronic (5) Dysphagia Code(s): R13.10 - DYSPHAGIA, UNSPECIFIED Status: Acute Qualifiers: Dysphagia type: unspecified Qualified Code(s): R13.10 - Dysphagia, unspecified (6) DM type 2 (diabetes mellitus, type 2) Status: Chronic Qualifiers: Diabetes mellitus fpc insulin use: with fpc use Diabetes mellitus complication status: with kidney complications Diabetes mellitus complication detail: with chronic kidney disease Chronic kidney disease stage: stage 3 (moderate) (7) Hypoglycemia Code(s): E16.2 - HYPOGLYCEMIA, UNSPECIFIED Status: Resolved (8) CKD (chronic kidney disease) stage 3, GFR 30-59 ml/min Code(s): N18.30 - CHRONIC KIDNEY DISEASE, STAGE 3 UNSPECIFIED Status: Chronic (9) Moderate protein-calorie malnutrition Code(s): E44.0 - MODERATE PROTEIN-CALORIE MALNUTRITION Status: Chronic (10) FTT (failure to thrive) in adult Status: Chronic (11) Acute exacerbation of CHF (congestive heart failure) Code(s): I50.9 - HEART FAILURE, UNSPECIFIED Status: Acute Qualifiers: Heart failure type: diastolic Qualified Code(s): I50.33 - Acute on chronic diastolic (congestive) heart failure (12) Hypertensive urgency Code(s): I16.0 - HYPERTENSIVE URGENCY Status: Resolved - Plan is on augmentin, nebs, still has temp of 100, CT chest reviewed. continue asp, plavix, coreg, hydralazine, imdur, lasix and procardia xl, htn is fairly controlled echo shows good ef with concentric lvh and diastolic dysfunction discussed code status with patient, she does not want to be intubated but cpr and cardiac resuscitation is ok 04/14/20 d/w her daughter and gave update 04/14/20, 04/16/20. prognosis guarded aspiration precautions, diet per speech advice covid -ve has generalized anasarca, worse in upper extremities PT to exercise her as tolerated want her temp to reduce for dc plan to snf, otherwise will get re- admitted/palliative or hospice care??
[2020-04-18] MEDS: Acetaminophen 325 MG TAB PO PRN (20:40)
[2020-04-19 04:57] VITALS: BMI 27.1
[2020-04-19] MEDS: cloNIDine 0.1 MG TAB PO PRN (04:58)
[2020-04-19 07:21] VITALS: BP 183/78; TEMP 98.4
[2020-04-19 07:24] LABS: #Eosinphils 0.1 thou/uL (0.0-0.7); #Monocytes 0.3 thou/uL (0.11-0.59); #Neutrophils 1.5 thou/uL (1.40-6.50); %Basophils 1.5 % (0.0-1.0); %Eosinophils 2.9 % (0.0-10.0); %Lymphocytes 34.6 % (21.0-51.0); %Monocytes 9.7 % (0.0-10.0); %Neutrophils 51.3 % (42.0-75.0); Mean Corpuscular HGB CONC 32.1 g/dL (32.0-36.0); Mean Corpuscular Hemoglobin 27.9 pg (27.0-31.0); Mean Platelet Volume 6.8 fL (7.4-10.4); Platelet Count 186 thou/uL (130-400); Red Blood Cell (RBC) Count 2.85 mill/uL (4.20-5.40); White Blood Cell (WBC) Count 2.9 thou/uL (4.8-10.8)
[2020-04-19 07:44] LABS: ALT (SGPT) 19 U/L (8-55); AST (SGOT) 43 U/L (5-34); Albumin 2.7 g/dL (3.4-4.8); Alkaline Phosphatase 32 U/L (40-110); Anion Gap 11 mmol/L (10-20); BUN (Urea Nitrogen) 27 mg/dL (9.8-20.1); Bilirubin, Total 0.3 mg/dL (0.2-1.2); Calc. Creatinine Clearance 27 mL/min (70-130); Carbon Dioxide 28 mmol/L (23-31); Chloride 106 mmol/L (98-107); Estimated GFR-MDRD 22; Globulin 2.7 g/dL (2.4-3.5); Glucose 128 mg/dL (83-110); Potassium 3.5 mmol/L (3.5-5.1); Protein, Total 5.4 g/dL (6.0-8.3); Sodium 141 mmol/L (136-145)
[2020-04-19] MEDS: Amoxicillin/Potassium Clav 500 MG TAB PO SCH (08:04)
[2020-04-19] MEDS: traZODone HCl 50 MG TAB PO SCH (08:04)
[2020-04-19] MEDS: Ferrous Sulfate 325 MG TAB PO SCH (08:04)
[2020-04-19] MEDS: Aspirin Chewable 81 MG TAB PO SCH (08:04)
[2020-04-19] MEDS: Furosemide 20 MG TAB PO SCH (08:04)
[2020-04-19] MEDS: NIFEdipine XL 90 MG TAB PO SCH (08:04)
[2020-04-19] MEDS: hydrALAZINE 25 MG TAB PO SCH (08:05)
[2020-04-19] MEDS: Magnesium Oxide 400 MG TAB PO SCH (08:05)
[2020-04-19] MEDS: Carvedilol 25 MG TAB PO SCH (08:05)
[2020-04-19] MEDS: Clopidogrel Bisulfate 75 MG TAB PO SCH (08:05)
[2020-04-19] MEDS: Heparin 5,000 UNITS/ML VIAL SC SCH (08:05)
[2020-04-19] MEDS ORDERED: Ergocalciferol 1.25 MG(50,000 UNITS) CAP PO SCH (09:00)
[2020-04-19] MEDS ORDERED: Potassium Chloride 20 MEQ TAB PO SCH (09:15)
--- NOTE | 2020-04-19 17:46 | DIS ---
DATE OF ADMISSION: 04/11/2020 DATE OF DISCHARGE: 04/19/2020 DISCHARGE DISPOSITION: [facility]. PRIMARY DISCHARGE DIAGNOSES: Sepsis; aspiration pneumonia; hypertensive urgency, resolved; severe deconditioning with functional quadriplegia; dysphagia; diabetes mellitus type 2; chronic kidney disease, stage 3; moderate protein malnutrition; failure to thrive; congestive heart failure exacerbation with diastolic dysfunction. PROCEDURES DONE DURING HOSPITALIZATION: CT brain showed no acute intracranial process. Chest x-ray done showed right lung pneumonia. Echo with 2D Doppler showed ejection fraction of 65% to 70%. There was severe concentric LVH. CT chest showed multifocal patchy infiltrate. Blood cultures x2, no growth. H and H of 8 and 24, platelet count 186, white count of 3, BUN 27, creatinine 2.2, albumin 2.7. BNP was 655 on 04/14/2020, serum iron 21, ferritin 1935. COVID-19 PCR was not detected on 04/11/2020. DISCHARGE MEDICATIONS: 1. Aspirin 81 mg p.o. daily. 2. Trazodone 50 mg p.o. at bedtime. 3. Imdur 60 mg twice daily. 4. Lantus 10 units subcu daily. 5. Lasix 20 mg twice daily. 6. Magnesium oxide 400 mg p.o. daily. 7. Reglan 10 mg p.o. 4 times daily p.r.n. 8. NovoLog as before. 9. Plavix 75 mg p.o. daily. 10. Vitamin D2 84457 units once weekly. 11. Albuterol nebulizer q.6 hourly p.r.n. 12. Hydralazine 75 mg p.o. 3 times daily. 13. Augmentin 500 mg p.o. twice daily for 5 more days. 14. Coreg 12.5 mg twice daily. 15. Ferrous sulfate 325 mg p.o. daily. 16. Procardia XL 90 mg p.o. daily. INPATIENT CONSULTS: Dr. Garnica for Pulmonology and Dr. Noble for Cardiology. DISCHARGE PLAN: The patient to follow up with her primary care physician, Dr. Kline in 1 week. BRIEF COURSE DURING HOSPITALIZATION: The patient initially was sent over from [facility] for altered mental state and low blood sugars of 34. She also required nearly 4 L of oxygen on arrival with acute respiratory failure with hypoxia. The patient was found to have had aspiration pneumonia. She was diagnosed with sepsis. She was placed on broad-spectrum antibiotic. The patient has had speech evaluation done, which showed findings of dysphagia with aspiration risk. She was placed on a modified diet on pureed thickened liquids. Three days into hospitalization, the patient had hypertensive urgency and had to be moved to ICU and was placed on Cardene drip for 12 hours and was discontinued with optimization of medications for her blood pressure. Echo done showed normal ejection fraction, but the patient had severe LVH. Her hypertension medications have been optimized. The patient has had temperatures of 99 to 100, which is slowly resolving at present. She has been transitioned to Augmentin for 5 more days. The patient's overall prognosis is poor due to aspiration risk and likely further worsening of her aspiration pneumonia. She needs hand feeding and aspiration precautions. A total of 35 minutes was spent on discharge plan. The patient is severely deconditioned and barely stood up with physical therapy. Please note, I have seen and examined the patient on the day of discharge. Job ID: [id number]
== END 2020-04-19 12:29 | DRG 871 ==
LOC: ERS 07:29 → ERHOLD 09:47 → 2NO 14:57 → CCU 04-14 02:10 → T4-A 04-15 13:50
PROVIDERS: ADMIT Student in an Organized Health Care Education/Training Program; ATTEND Student in an Organized Health Care Education/Training Program
DX: A41.9 Sepsis, unspecified organism (principal); J96.01 Acute respiratory failure with hypoxia; J69.0 Pneumonitis due to inhalation of food and vomit; I50.33 Acute on chronic diastolic (congestive) heart failure; R53.2 Functional quadriplegia; G93.41 Metabolic encephalopathy; I13.0 Hypertensive heart and chronic kidney disease with heart failure and stage 1 through stage 4 chronic kidney disease, or unspecified chronic kidney disease; E44.0 Moderate protein-calorie malnutrition; N17.9 Acute kidney failure, unspecified; I42.9 Cardiomyopathy, unspecified; Z20.828 Contact with and (suspected) exposure to other viral communicable diseases; Z23 Encounter for immunization; I16.0 Hypertensive urgency; E11.22 Type 2 diabetes mellitus with diabetic chronic kidney disease; E11.649 Type 2 diabetes mellitus with hypoglycemia without coma; D50.9 Iron deficiency anemia, unspecified; I25.10 Atherosclerotic heart disease of native coronary artery without angina pectoris; R65.20 Severe sepsis without septic shock; F03.90 Unspecified dementia, unspecified severity, without behavioral disturbance, psychotic disturbance, mood disturbance, and anxiety; R13.10 Dysphagia, unspecified; E87.6 Hypokalemia; Z79.82 Long term (current) use of aspirin; Z68.27 Body mass index [BMI] 27.0-27.9, adult; Z79.899 Other long term (current) drug therapy; Z79.4 Long term (current) use of insulin; Z79.01 Long term (current) use of anticoagulants
CPT/HCPCS: 36415; 36416; 51701; 70450; 71045; 71250; 74230; 80048; 80053; 81003; 81015; 82607; 82728; 82805; 83540; 83550; 83605; 83880; 84443; 85025; 87040; 87635; 90471; 90662; 90732; 93005; 93306; 93970; 96365; 96375; G0008; G0009; J0456; J0696; J1644; J1940; J3490; J7050; U0003